=== PATIENT | female | born 1955 | race Caucasian/White ===

== ENCOUNTER → 2018-10-17 | Outpatient (CLI) | payer BC ==
[~2018-10-17] MED LIST: ACET500T68 PO; ATOR10TA60 PO; DOCU-109 PO; HYDR-2765 PO; IRBE1TAB7 PO; METH-38 PO; PREG150C PO
--- NOTE | 2018-10-17 16:12 | EKG ---
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
[2018-10-17 16:38] LABS: BASO # 0.1 x10^3/uL (0.0-0.2); BASO % 1 % (0-3); EOS # 0.3 x10^3/uL (0.0-0.7); EOS % 3 % (0-3); HEMATOCRIT 41.7 % (36.0-47.0); HEMOGLOBIN 13.6 g/dL (12.0-15.5); LYMPH # 2.5 x10^3/uL (1.0-4.8); LYMPH % 27 % (24-48); MEAN CORPUSCULAR HEMOGLOBIN 29 pg (25-35); MEAN CORPUSCULAR HGB CONC 33 g/dL (31-37); MEAN CORPUSCULAR VOLUME 88 fL (79-100); MONO # 1.1 x10^3/uL (0.0-1.1); MONO % 12 % (0-9); NEUT # 5.2 x10^3uL (1.8-7.7); NEUT % 57 % (31-73); PLATELET COUNT 280 x10^3/uL (140-400); RED BLOOD COUNT 4.72 x10^6/uL (3.50-5.40); RED CELL DISTRIBUTION WIDTH 13.9 % (11.5-14.5); WHITE BLOOD COUNT 9.1 x10^3/uL (4.0-11.0)
[2018-10-17 17:01] LABS: ALBUMIN 4.1 g/dL (3.4-5.0); CALCIUM 9.4 mg/dL (8.5-10.1); CREATININE 2.3 mg/dL (0.6-1.0); GFR 21.3; POTASSIUM 3.8 mmol/L (3.5-5.1); TOTAL BILIRUBIN 0.9 mg/dL (0.2-1.0); TOTAL PROTEIN 8.4 g/dL (6.4-8.2)
== END | disposition home or self-care (01) ==
LOC: SURGPAT 13:23
PROVIDERS: ATTEND Neurological Surgery
DX: Z01.818 Encounter for other preprocedural examination (principal); M51.16 Intervertebral disc disorders with radiculopathy, lumbar region; M48.061 Spinal stenosis, lumbar region without neurogenic claudication
CPT/HCPCS: 36415; 80053; 85025; 87641; 93005

== ENCOUNTER 2018-10-24 08:35 | Day surgery (SDC) | payer BC ==
--- NOTE | 2018-10-21 16:14 | PREOP HP ---
DATE OF SERVICE: 10/24/2018 ANTICIPATED DATE OF SURGERY: 10/24/2018. HISTORY OF PRESENT ILLNESS: The patient is a pleasant 63-year-old who is having difficulty with posterior thigh and lateral thigh pain along with moderately severe lower back pain. The problem has been present and severe since 02/2018. She had moderate back pain, without significant leg pain. She fell out of a truck in February and since that point, has had very significant pain. The pain is fairly constant. She takes Tylenol and Lyrica. She has had epidural steroid injections, without help as well as ablation treatments, without benefit. She uses a cane for ambulation. PAST MEDICAL HISTORY: Hypertension and fibromyalgia. PAST SURGICAL HISTORY: Total hysterectomy in 1994 and cholecystectomy in 1999. FAMILY HISTORY: Cancer and hypertension. SOCIAL HISTORY: Retired. . Exercises weekly. Denies substance abuse. Denies tobacco use. Denies alcohol consumption. Drinks soda daily. ALLERGIES: No known drug allergies. CURRENT MEDICATIONS: Lyrica, atorvastatin, calcium, irbesartan and Tylenol. REVIEW OF SYSTEMS: A 12-point review of systems was obtained and is noncontributory, except for that mentioned above. PHYSICAL EXAMINATION: NEUROSURGERY EXAMINATION: GENERAL APPEARANCE: Alert, pleasant, no acute distress. HEAD: Normocephalic and atraumatic. SKIN: Warm and dry. MUSCULOSKELETAL: Lumbar paraspinal muscle bulk is normal, restricted range of motion of the lumbar spine, [id number] tenderness of the lower lumbar spine on palpation, normal range of motion of the lower extremities bilaterally. EXTREMITIES: No clubbing, cyanosis or edema. NEUROLOGIC: Alert and oriented x 3. Normal recent and remote memory, strength 5/5 in bilateral lower extremities, sensory is intact to light touch in bilateral lower extremities. Reflexes are trace and symmetric in the lower extremities bilaterally, negative straight leg raising bilaterally. Forward stooped posture with standing and ambulation, ambulates with a cane. IMAGING: I reviewed the recent lumbar MRI scan from 05/16/2018. On that study, there was significant spinal stenosis in a Trefoil-type pattern at L4-L5 with significant lateral recess narrowing bilaterally. There was severe hypertrophied ligamentum flavum combined with hypertrophic facets and a disk protrusion at L2-L3, which is central and left sided. This is associated with severe lateral recess narrowing as well as moderately severe central canal stenosis. ASSESSMENT/PLAN: I believe the problems at L2-L3 and L4-L5 are responsible for majority of her pain. My recommendation at this point is to perform a left direct laminectomy at L2-L3 with microdiscectomy at that level and combine this with bilateral lumbar microdecompressive surgery at L4-L5. I spoke about the surgery with the patient and we discussed risks as well as postoperative course. She understands. She would like to go ahead. We will make the arrangements. BEBO CASE MD DR: JESSICA/lulu JOB#: [id number] / [id number] MANAN
[~2018-10-24] VITALS: Ht 167.6 cm; Wt 97.5 kg
[~2018-10-24 08:35] MED LIST changes: +BACITRACIN 50,000 UNIT in IV NORMAL SALINE 1000ML BAG 1,000 ML IRR ONE; +BUPIVAC MPF-EPI 0.5%-1:200000 30 ML VIAL. ONE; -DOCU-109 PO; +GELATIN SPONGE SIZE 100. ONE; -HYDR-2765 PO; +HYDROmorphone 2 MG/ML VIAL IV PRN; +IV RINGERS,LACTATED 1000ML 1,000 ML IV SCH; +KETOROLAC 60 MG/2 ML INJ FOR OR. ONE; +LIDOCAINE 1% PF 2 ML VIAL. ID PRN; -METH-38 PO; +MORPHINE SULFATE 2 MG/ML VIAL. IV PRN; +ONDANSETRON PF 4 MG/2 ML VIAL. IV PRN; +PROCHLORPERAZINE 10 MG/2 ML VIAL. IV PRN; +THROMBIN TOPICAL 20,000 UNIT SPRAY.SYRN KIT TP ONE; +fentaNYL PF VIAL 100 MCG/2 ML VIAL IV PRN
[2018-10-24] MEDS ORDERED: GLYCOPYRROLATE 1 MG/5 ML VIAL. ONE ×2 (10:06→10:08)
[2018-10-24] MEDS ORDERED: REMIFENTANIL 2 MG VIAL. IV ONE (10:06)
[2018-10-24] MEDS ORDERED: ROCURONIUM 50 MG/5 ML VIAL. ONE (10:06)
[2018-10-24] MEDS ORDERED: MIDAZOLAM HCL/PF 2 MG/2 ML VIAL. ONE (10:06)
[2018-10-24] MEDS ORDERED: ONDANSETRON PF 4 MG/2 ML VIAL. ONE (10:07)
[2018-10-24] MEDS ORDERED: PROPOFOL 20 ML IV ONE (10:07)
[2018-10-24] MEDS ORDERED: PROPOFOL 50 ML IV ONE ×2 (10:07→11:52)
[2018-10-24] MEDS ORDERED: DEXAMETHASONE SOD PHOS 20 MG/5 ML VIAL. ONE (10:07)
[2018-10-24] MEDS ORDERED: FAMOTIDINE 20 MG/2 ML VIAL ONE (10:08)
[2018-10-24] MEDS ORDERED: PHENYLEPHRINE 10 MG/ML VIAL. ONE (10:10)
[2018-10-24] MEDS ORDERED: REMIFENTANIL 1 MG VIAL. IV ONE (12:32)
[2018-10-24] MEDS ORDERED: DESFLURANE > 120 MINUTES IH ONE (13:02)
[2018-10-24] MEDS ORDERED: fentaNYL PF VIAL 100 MCG/2 ML VIAL ONE ×2 (13:30→14:15)
--- NOTE | 2018-10-24 13:50 | DISCH ---
DISCHARGE INSTRUCTIONS Condition on Discharge Condition on Discharge: Stable Activity After Discharge Activity Instructions for Disc: Activity as tolerated, Avoid exertion Other activity instructions: no driving for a week Bathing Instructions: Shower-keep dressing dry Lifting Instructions after Dis: No heavy lifting, No pulling or pushing, Do not lift >10 pounds Diet after Discharge Additional Diet Restrictions: resume home diet Wound Incision Care Wound/Incision Care: Ice to area for comfort Other wound/incision instructi: may remove dressing in 48 hours if dry then may shower, no soaking Contacting the after DC Call your doctor for: Concerns you may have Follow-Up Follow up with: Dr. Case's nurse in 2 weeks [phone] BEBO CASE MD Oct 24, 2018 13:50
[2018-10-24] MEDS ORDERED: DOCU-109 PO (13:53)
[2018-10-24] MEDS ORDERED: HYDR-2765 PO (13:53)
[2018-10-24] MEDS ORDERED: METH-38 PO (13:53)
[2018-10-24] MEDS: fentaNYL PF VIAL 100 MCG/2 ML VIAL IV PRN ×2 (14:39→14:52)
[2018-10-24 15:23] VITALS: BP 113/41
[2018-10-24] MEDS ORDERED: HYDROcodone/APAP 7.5/325MG 1 TAB TABLET PO ONE (16:00)
--- NOTE | 2018-10-25 18:28 | OP ---
DATE OF SURGERY: 10/24/2018 PREOPERATIVE DIAGNOSES: 1. Lateral recess stenosis and lateral canal stenosis, left L2-L3. 2. Mild lateral hypertrophic facet and ligament with canal and lateral recess narrowing at L4-L5. OPERATION PERFORMED: 1. Left direct laminectomy L2-L3 with decompression of dura and nerve root. Findings at this level were calcified hard disc as well as hypertrophic facet and ligament. 2. Bilateral lumbar micro hemilaminotomies with decompression of dura and nerve root, L4-L5. The operation was done with EMG monitoring, fluoroscopy, microscopic dissection. SURGEON: Marciano Case M.D. TABLE TOP TILE SETTER: SNEHAL Contreras assisted with the surgery. She assisted with the exposure, the decompression of both levels and the closure. OPERATIVE INDICATIONS: The patient is a very pleasant 63-year-old woman who has developed intractable back and bilateral lower extremity pain, had the above-mentioned findings on imaging studies. She failed conservative measures and surgery was recommended. She understood the surgery and the risks, she wished to go ahead. DESCRIPTION OF PROCEDURE: Following general endotracheal anesthesia, the patient was positioned prone on the Hernandez table. Lumbar region was prepped and draped in standard fashion. JABIER hose and AV impulse boots were applied for DVT prophylaxis. The microscope was draped. Fluoroscopy was draped and brought in the field. Monitoring was established. Ancef 2 grams was given less than 1 hour prior to initiation of the surgery. Using fluoroscopic guidance, I first directed my attention to L2-L3. I made a midline posterior incision over the L2-L3 interspace. I dissected down skin and subcutaneous tissue, reflected the paraspinal muscles to the left and placed a Rogers microdisk retractor. I brought in the microscope and using microscopic technique, I burred down a generous hemilaminotomy. The ligament was very thickened and I freed this up from superiorly to inferiorly. I did perform a generous foraminotomy again with a high-speed air drill as well as a 2- and 2.5-mm Fehling Kerrison's. I peeled away the very thickened ligamentum flavum from medial to lateral. I tilted the patient away from ct and I drilled across the midline posteriorly to fully decompress that region and then, I again tilted the patient toward me and worked lateral to the lateral edge of the dura and removed thickened ligament and then opened the neural foramen. I gently reflected the nerve root medially. There was disc bulging, which was scarred down to the dura and I worked in gently, freed the dura and retracted medially. The disc was heavily calcified and no discectomy was performed. I did a very generous left direct laminectomy and I felt that I had an excellent decompression. I then moved down to L4-L5 on the left and again made an incision directly over the midline. Again through the microscope, I reflected the paraspinal muscles and placed a Rogers microdisk retractor on the left and using microscopic technique, I again burred down a generous hemilaminotomy, again confirming my position fluoroscopically. I trimmed away the very thickened ligamentum flavum, peeled it from medial to lateral and performed a generous foraminotomy and fully decompressed the dura and the exiting root, which were well visualized. I palpated the disc, which was firm. No discectomy was warranted and then, I went to the right side in a similar fashion, created an exposure, placed a Rogers microdisk retractor and again with the microscope, burred down a generous hemilaminotomy. I decompressed the dura by again peeling away the thickened ligamentum flavum and performing a partial foraminotomy. Again, I palpated the disc and there was no disc bulging. The disc was firm and no discectomy was warranted. I felt I had an excellent decompression. I did use small amounts of Gelfoam as well as bipolar cautery where necessary and fully decompressed the entire region. At this point then, I irrigated copiously and closed the wound in layers with absorbable suture. The skin was closed with 4-0 subcuticular stitch. The operation went very well. The patient was awakened and eventually taken to recovery room in excellent condition. I was quite pleased with the surgery. MARCIANO CASE MD DR: JESSICA/lulu JOB#: [id number] / [id number] MANAN
--- NOTE | 2018-10-27 09:10 | PATHOLOGY ---
[facility] Accession Number: [id number] . 01 Material submitted: . LUMBAR DISC AND DECOMPRESSION . 01 Clinical history: . Stenosis, back pain, lumbar herniated disc and radiculopathy . 02 Diagnosis: Segments of fibrocartilaginous, adipose, and skeletal muscle tissue and bone, lumbar disc and decompression: - Degenerative changes of fibrocartilaginous tissue. . (JPM:mml; 10/26/2018) [facility]/10/27/2018 . 02 Comment: There is no evidence of an acute inflammatory process or malignancy. . (JPM:mml; 10/26/2018) . 02 Electronically signed: . Garcia Roy MD, Pathologist NPI- [id number] . 01 Gross description: . Received in formalin labeled "Nereida Rodríguez, lumbar disc and decompression," are several pieces of glistening, fibrous tissue measuring 4.5 x 3.1 x 0.9 cm in aggregate dimensions, containing small fragments of possible bone. The tissue is submitted representatively in cassette A1, following decalcification. (TSD; 10/24/2018) TOB/TOB . 02 Pathologist provided ICD-10: M51.36 . 02 CPT . 088913, [id number] Specimen Comment: A courtesy copy of this report has been sent to Specimen Comment: [phone], . Specimen Comment: Report sent to / DR GREENWOOD Performed at: 01 [facility] [address], [place], [place] [id number] MD Kaushik Horn MD Phone: [phone] Performed at: 02 [facility] [address] [place], [place] [id number] MD Garcia Roy MD Phone: [phone]
== END 2018-10-24 16:37 | disposition home or self-care (01) ==
LOC: SURG 08:35
PROVIDERS: ATTEND Neurological Surgery
DX: M48.062 Spinal stenosis, lumbar region with neurogenic claudication (principal); M51.16 Intervertebral disc disorders with radiculopathy, lumbar region; I10 Essential (primary) hypertension; M79.7 Fibromyalgia; Z79.899 Other long term (current) drug therapy; Z90.49 Acquired absence of other specified parts of digestive tract; Z90.710 Acquired absence of both cervix and uterus; Z82.49 Family history of ischemic heart disease and other diseases of the circulatory system
CPT/HCPCS: 63047; 63048; 76000; 88304; 88311; A7015; J0696; J1100; J1885; J2250; J2405; J2704; J3010; J3490; J7030